=== PATIENT | male | born 1970 | race Caucasian/White ===

== ENCOUNTER 2020-06-10 10:32 | Inpatient (IN) | payer BC ==
[~2020-06-10] VITALS: Ht 170.1 cm; Wt 88.0 kg
[2020-06-10 10:35] VITALS: BP 126/83
[2020-06-10 11:03] LABS: BASO % 0.2 % (0.0-1.0); EOS % 0.3 % (1.0-4.0); HEMATOCRIT 44.3 % (42.0-52.0); LYMPH # 1.1 10*3/uL (1.3-4.4); LYMPH % 10.7 % (27.0-41.0); MEAN CELL VOLUME 90.6 fl (80.0-94.0); MEAN CORPUSCULAR HGB 31.1 pg (27.0-31.0); MEAN CORPUSCULAR HGB CONC 34.3 g/dl (33.0-37.0); MEAN PLATELET VOLUME 10.8 fl (9.6-12.3); MONO # 0.5 10*3/uL (0.1-1.0); MONO % 4.5 % (3.0-9.0); NEUT # 8.8 10*3/uL (2.3-7.9); PLATELET COUNT AUTOMATED 298 10*3/uL (130-400); RED BLOOD COUNT 4.89 10*6/uL (4.50-5.90); RED CELL DISTRI WIDTH 11.4 % (0-14.5); WHITE BLOOD COUNT 10.5 10*3/uL (4.8-10.8)
[2020-06-10 11:14] LABS: ACT PARTIAL THROMBO TIME 23.2 SECONDS (20.0-32.1)
[2020-06-10 11:18] LABS: ALBUMIN 3.9 gm/dl (3.1-4.5); ALKALINE PHOSPHATASE 101 U/L (45-117); BUN 30 mg/dl (7-24); CHLORIDE 99 mmol/L (98-107); CREATININE 1.33 mg/dL (0.70-1.30); POTASSIUM 4.4 mmol/L (3.5-5.1); SGOT/AST 9 IU/L (3-35); SGPT/ALT 17 U/L (12-78); SODIUM 135 mmol/L (136-145); TOTAL PROTEIN 8.1 gm/dL (6.4-8.2)
[2020-06-10 11:19] LABS: TROPONIN I < 0.015 ng/ml (<0.045)
[2020-06-10 12:42] VITALS: BP 131/88
--- NOTE | 2020-06-10 12:43 | NUR ---
RESTING QUIETLY IN NO DISTRESS. CALL LIGHT IN REACH.
[2020-06-10 13:00] VITALS: BP 162/98
--- NOTE | 2020-06-10 13:35 | NUR ---
MSTime: [id number] A 49 year old MALE admitted to 5E under services of FATEMEH HOOPER DO. Pt. arrived via bed from ER. Chief complaint: VOMITING. HYPERGLYCEMIA FRANTZ CASTILLO
[2020-06-10] MEDS ORDERED: BASAG SOL SC (13:54)
--- NOTE | 2020-06-10 13:54 | NUR ---
MED REC UPDATED PER POLICY.
[2020-06-10] MEDS ORDERED: LOPERAMIDE HCL2 MG PO (13:55)
[2020-06-10] MEDS ORDERED: ONDANSETRON HYDR4 M1 PO (13:55)
[2020-06-10 15:47] VITALS: BP 150/96
[2020-06-10 16:00] VITALS: BP 136/89
--- NOTE | 2020-06-10 16:30 | NUR ---
BSG 302. 15 UNITS OF INSULIN GIVEN PER S/S. WILL CONTINUE TO MONITOR. IVF MAINTAINED PER ORDER.
[2020-06-10 20:00] VITALS: BP 156/88; BP 183/107
--- NOTE | 2020-06-10 20:11 | NUR ---
24 HR chart check completed.
--- NOTE | 2020-06-10 20:30 | NUR ---
SLEEPING, AWAKENS EASILY. RESPIRATIONS EASY. LUNGS DIMINISHED, CLEAR. PULSE OX 98% RA. IV FLUIDS INFUSING PER ORDER. CALL LIGHT WITHIN REACH. NO VOICED COMPLAINTS
--- NOTE | 2020-06-10 22:10 | NUR ---
PATIENT NOTED TO HAVE SMALL EMESIS. DR PRADO CONTACTED AND INFORMED PATIENT VOMITING. NEW ORDERS TO BE ENTERED
--- NOTE | 2020-06-10 22:39 | NUR ---
1 TIME DOSE PHENERGAN GIVEN D/T VOMITING. WILL MONITOR
--- NOTE | 2020-06-10 23:15 | NUR ---
PHENERGAN APPEARS EFFECTIVE. SLEEPING. NO FURTHER EMESIS NOTED. IV FLUDIS MAINTAINED. CALL LIGHT WITHIN REACH
[2020-06-11] VITALS: BP 115/77
--- NOTE | 2020-06-11 | NUR ---
SLEEPING. NO DISTRESS NOTED. RESPIRATIONS EASY. VSS. IV FLUIDS MAINTAINED. CALL LIGHT WITHIN REACH.
--- NOTE | 2020-06-11 03:00 | NUR ---
CONTINUES TO SLEEP. IV FLUDIS MAINTAINED. CALL LIGHT WITHIN REACH
--- NOTE | 2020-06-11 06:00 | NUR ---
SLEPT THROUGHOUT NIGHT. AWAKENS THIS AM, SMALL EMESIS (LESS THAN 10 CC) DARK BILE NOTED. IV FLUIDS MAINTAINED. CALL LIGHT WITHIN REACH. NO VOICED COMPLAINTS
[2020-06-11 06:10] LABS: BASO % 0.2 % (0.0-1.0); EOS % 0.3 % (1.0-4.0); HEMATOCRIT 44.2 % (42.0-52.0); LYMPH # 1.3 10*3/uL (1.3-4.4); LYMPH % 11.7 % (27.0-41.0); MEAN CELL VOLUME 93.4 fl (80.0-94.0); MEAN CORPUSCULAR HGB 31.9 pg (27.0-31.0); MEAN CORPUSCULAR HGB CONC 34.2 g/dl (33.0-37.0); MEAN PLATELET VOLUME 10.6 fl (9.6-12.3); MONO # 0.6 10*3/uL (0.1-1.0); MONO % 4.9 % (3.0-9.0); NEUT # 9.4 10*3/uL (2.3-7.9); NEUT % 82.5 % (47.0-73.0); PLATELET COUNT AUTOMATED 291 10*3/uL (130-400); RED BLOOD COUNT 4.73 10*6/uL (4.50-5.90); RED CELL DISTRI WIDTH 11.9 % (0-14.5); WHITE BLOOD COUNT 11.3 10*3/uL (4.8-10.8)
[2020-06-11 06:34] LABS: ALBUMIN 3.7 gm/dl (3.1-4.5); ALKALINE PHOSPHATASE 94 U/L (45-117); BUN 24 mg/dl (7-24); CHLORIDE 109 mmol/L (98-107); CHOLESTEROL 186 mg/dL (<200); CREATININE 1.03 mg/dL (0.70-1.30); FREE T4 1.17 ng/dl (0.76-1.46); HDL CHOLESTEROL 52 mg/dl (40-60); LDL CHOLESTEROL 114 mg/dL (9-159); POTASSIUM 3.7 mmol/L (3.5-5.1); SGOT/AST 9 IU/L (3-35); SGPT/ALT 17 U/L (12-78); SODIUM 143 mmol/L (136-145); TRIGLYCERIDES 102 mg/dl (<150); VLDL CHOLESTEROL 20 mg/dL (6-40)
[2020-06-11 06:39] LABS: THYROID STIM HORMONE (HS) 0.474 uIU/ml (0.358-4.75)
[2020-06-11 07:54] LABS: VITAMIN D, 25-HYDROXY 26.5 ng/mL (30-100)
[2020-06-11 08:00] VITALS: BP 144/82
--- NOTE | 2020-06-11 08:38 | NUR ---
PT C/O NAUSEA & HAD ONE SMALL EMESIS OF DARK BROWN LIQUID; NOTIFIED . GIVEN DOSE OF IV PHENERGAN AT THIS TIME PER ORDER. WILL MONITOR FOR EFFECTIVENESS.
--- NOTE | 2020-06-11 09:00 | NUR ---
Delivery Room Clerk in to talk to patient. Patient states lives at home with his sister. There are 0 steps in the home. Physician: no family physician [facility]acy: [facility] health services: none Patient's level of ADLs: MINIMAL ASSIST Patient has working utilities: yes DME: cane Follow-up physician's appointment after d/c: will be made by the hospitalist nurse director upon discharge Does patient want to access PORTAL?: no Discharge plan discussed with patient. He lives at home with his sister. He has moved to the area a couple of months ago and previously lived in [place]. He states he is independent in his ADLs and ambulates with a cane. Discussed home health care services and he declines at this time. CM will continue to follow for any discharge planning needs. When medically stable he will be discharged to home. He states either his nephew or his sister will provide transportation on discharge. MESHA BIGGS
--- NOTE | 2020-06-11 09:38 | NUR ---
PER PATIENT, PHENERGAN HAS BEEN EFFECTIVE FOR NAUSEA. RESTING @ THIS TIME.
[2020-06-11 12:00] VITALS: BP 152/88
--- NOTE | 2020-06-11 14:46 | NUR ---
PT MEDICATED WITH 12.5 OF PHENERGAN FOR C/O UPSET STOMACH AND NAUSEA. WILL CONTINUE TO MONITOR FOR RELIEF. RESTING IN BED. CALL LIGHT WITHIN REACH
--- NOTE | 2020-06-11 15:26 | NUR ---
Nutritional Support Services Note: Discussing with pt 1800al diabetic diet. Diet copy given to pt. All questions were answered. Encouraged better compliance to the diet. He has been a diabetic for 13 years. States he hasn't been following the diet as well as he should be. Encouraged three meals daily and a night snack. Encouraged healthy eating habits. Will follow if needed. Encouraged follow up if needed. Ana Villar Rdn Ld
--- NOTE | 2020-06-11 15:46 | NUR ---
PER PATIENT, PRN MEDICATION HAS BEEN EFFECTIVE. RELAXED AND RESTING AT THIS TIME. CALL LIGHT IN REACH.
[2020-06-11 16:00] VITALS: BP 129/67
[2020-06-11 20:00] VITALS: BP 148/80; BP 171/97
--- NOTE | 2020-06-11 20:30 | NUR ---
24 HR chart check completed.
--- NOTE | 2020-06-11 21:00 | NUR ---
SLEEPING, AWAKENS EASILY. RESPIRATIONS EASY. LUNGS DIMINISHED, CLEAR. PULSE OX 98% RA. ABD SOFT WITH HYPO BOWEL SOUNDS, DENIES ABD PAIN. RECURRENT N/V, NONE AT PRESENT. IV FLUIDS INFUSING PER ORDER. CALL LIGHT WITHIN REACH. NO VOICED COMPLAINTS
--- NOTE | 2020-06-11 22:39 | NUR ---
REQUESTED AND RECEIVED PHENERGAN PER PRN ORDER FOR COMPLAINTS OF NAUSEA. WILL MONITOR FOR EFFECTIVENESS
--- NOTE | 2020-06-11 23:15 | NUR ---
MEDS APPEAR EFFECTIVE, SLEEPING.
[2020-06-12] VITALS: BP 114/69
--- NOTE | 2020-06-12 | NUR ---
CONTINUES TO SLEEP WITH NO DISTRESS NOTED. RESPIRATIONS EASY. VSS. IV FLUIDS MAINTAINED PER ORDER. CALL LIGHT WITHIN REACH. WILL MONITOR
--- NOTE | 2020-06-12 06:00 | NUR ---
SLEPT THROUGHOUT NIGHT WITH NO ACUTE DISTRESS NOTED. NO ACTIVE VOMITING. IV FLUIDS MAINTAINED. CALL LIGHT WITHIN REACH. NO VOICED COMPLAINTS THIS SHIFT
[2020-06-12 06:18] LABS: BASO % 0.2 % (0.0-1.0); EOS % 0.4 % (1.0-4.0); HEMATOCRIT 40.7 % (42.0-52.0); LYMPH # 1.3 10*3/uL (1.3-4.4); LYMPH % 13.2 % (27.0-41.0); MEAN CELL VOLUME 93.1 fl (80.0-94.0); MEAN CORPUSCULAR HGB 31.1 pg (27.0-31.0); MEAN CORPUSCULAR HGB CONC 33.4 g/dl (33.0-37.0); MEAN PLATELET VOLUME 10.3 fl (9.6-12.3); MONO # 0.5 10*3/uL (0.1-1.0); MONO % 5.6 % (3.0-9.0); NEUT # 7.6 10*3/uL (2.3-7.9); NEUT % 80.4 % (47.0-73.0); PLATELET COUNT AUTOMATED 247 10*3/uL (130-400); RED BLOOD COUNT 4.37 10*6/uL (4.50-5.90); RED CELL DISTRI WIDTH 11.6 % (0-14.5); WHITE BLOOD COUNT 9.5 10*3/uL (4.8-10.8)
[2020-06-12 06:45] LABS: BUN 20 mg/dl (7-24); CHLORIDE 112 mmol/L (98-107); CREATININE 0.85 mg/dL (0.70-1.30); POTASSIUM 3.5 mmol/L (3.5-5.1); SODIUM 142 mmol/L (136-145)
[2020-06-12 08:00] VITALS: BP 158/92; BP 186/108
--- NOTE | 2020-06-12 08:56 | NUR ---
Pt requested and was medicated with Phenegran IV for c/o nausea with small emesis. Call light in reach. WIll monitor
--- NOTE | 2020-06-12 09:00 | NUR ---
CM in to see patient. No new needs or request at this time. Discussed home health care services and he declines. CM will continue to follow for any discharge planning needs. When medically stable he will discharged to home.
--- NOTE | 2020-06-12 09:40 | NUR ---
Medication effective per pt. call light in reach. will monitor
--- NOTE | 2020-06-12 11:49 | NUR ---
Patient resting quietly with no c/o discomfort. IVF infusing per orders. Respirations easy and regular. Vital signs stable. No overt distress. COOKIE PATRICK R
[2020-06-12 12:00] VITALS: BP 154/74
[2020-06-12 16:00] VITALS: BP 148/88
[2020-06-12 20:00] VITALS: BP 130/76
--- NOTE | 2020-06-12 20:30 | NUR ---
SPOKE WITH REGARDING PATIENT RECEIVING IV FLUIDS. PATIENT REVIEWED. ORDERS RECEIVED.
[2020-06-13] VITALS: BP 161/90
[2020-06-13 08:00] VITALS: BP 168/94
[2020-06-13 12:00] VITALS: BP 158/85
[2020-06-13] MEDS ORDERED: METOCLOPRAMIDE H5 M1 PO (13:53)
[2020-06-13] MEDS ORDERED: VITAMIN D350 MC2 PO (13:53)
--- NOTE | 2020-06-13 14:52 | NUR ---
Discharge instructions reviewed with patient/family. Patient receptive and verbalizes understanding. Follow-up care arranged. Written instructions given to patient/family. HEPLOCK DISCONTINUED. WOUND PHOTO TAKEN OF LEFT 3RD TOE. PATIENT TAKEN OFF FLOOR VIA WHEELCHAIR. CAMELIA BLUE
== END 2020-06-13 16:20 | disposition home or self-care (01) | DRG 637 ==
LOC: ED 10:32 → EDHOLD 13:05 → 5E 13:05
PROVIDERS: Emergency Medicine; Hospitalist; ADMIT Internal Medicine; ATTEND Internal Medicine
DX: E11.65 Type 2 diabetes mellitus with hyperglycemia (principal); N17.0 Acute kidney failure with tubular necrosis; E87.1 Hypo-osmolality and hyponatremia; R11.2 Nausea with vomiting, unspecified; R00.0 Tachycardia, unspecified; D72.829 Elevated white blood cell count, unspecified; D64.9 Anemia, unspecified; E87.8 Other disorders of electrolyte and fluid balance, not elsewhere classified; E55.9 Vitamin D deficiency, unspecified; I10 Essential (primary) hypertension; E80.6 Other disorders of bilirubin metabolism; E86.0 Dehydration; Z79.4 Long term (current) use of insulin; Z83.79 Family history of other diseases of the digestive system; Z80.1 Family history of malignant neoplasm of trachea, bronchus and lung; Z83.3 Family history of diabetes mellitus; K29.70 Gastritis, unspecified, without bleeding

== ENCOUNTER 2020-07-21 08:34 | Emergency (ER) | payer BC ==
[~2020-07-21] VITALS: Ht 170.1 cm; Wt 86.2 kg
[~2020-07-21 08:34] MED LIST: BASAG SOL SC; LOPERAMIDE HCL2 MG PO; METOCLOPRAMIDE H5 M1 PO; ONDANSETRON HYDR4 M1 PO; VITAMIN D350 MC2 PO
[2020-07-21 09:24] LABS: BASO % 0.2 % (0.0-1.0); EOS % 0.3 % (1.0-4.0); HEMATOCRIT 44.3 % (42.0-52.0); LYMPH # 1.4 10*3/uL (1.3-4.4); LYMPH % 14.2 % (27.0-41.0); MEAN CELL VOLUME 89.7 fl (80.0-94.0); MEAN CORPUSCULAR HGB 30.8 pg (27.0-31.0); MEAN CORPUSCULAR HGB CONC 34.3 g/dl (33.0-37.0); MEAN PLATELET VOLUME 9.7 fl (9.6-12.3); MONO # 0.5 10*3/uL (0.1-1.0); MONO % 4.8 % (3.0-9.0); NEUT # 8.2 10*3/uL (2.3-7.9); NEUT % 80.3 % (47.0-73.0); PLATELET COUNT AUTOMATED 315 10*3/uL (130-400); RED BLOOD COUNT 4.94 10*6/uL (4.50-5.90); RED CELL DISTRI WIDTH 11.7 % (0-14.5); WHITE BLOOD COUNT 10.2 10*3/uL (4.8-10.8)
[2020-07-21 09:38] LABS: ALKALINE PHOSPHATASE 81 U/L (45-117); BUN 19 mg/dl (7-24); CHLORIDE 106 mmol/L (98-107); CREATININE 0.91 mg/dL (0.70-1.30); POTASSIUM 3.8 mmol/L (3.5-5.1); SGOT/AST 11 IU/L (3-35); SGPT/ALT 23 U/L (12-78); SODIUM 139 mmol/L (136-145); TOTAL PROTEIN 8.3 gm/dL (6.4-8.2)
[2020-07-21] MEDS ORDERED: ZOFRAN4 MG PO (10:10)
== END 2020-07-21 10:56 | disposition home or self-care (01) ==
LOC: ED 08:34
PROVIDERS: Emergency Medicine
DX: K29.70 Gastritis, unspecified, without bleeding (principal); E11.9 Type 2 diabetes mellitus without complications; Z79.899 Other long term (current) drug therapy; Z79.4 Long term (current) use of insulin

== ENCOUNTER 2020-07-21 11:25 | Emergency (ER) | payer BC ==
[~2020-07-21] VITALS: Wt 86.2 kg
[~2020-07-21 11:25] MED LIST changes: +ZOFRAN4 MG PO
== END 2020-07-21 13:16 | disposition home or self-care (01) ==
LOC: ED 11:25
DX: K29.70 Gastritis, unspecified, without bleeding (principal); E11.9 Type 2 diabetes mellitus without complications; Z79.899 Other long term (current) drug therapy; Z79.4 Long term (current) use of insulin